=== PATIENT | female | born 1965 | race Two or more races ===

== ENCOUNTER 2021-09-10 15:30 | Emergency (ER) | payer SELFPAY ==
[~2021-09-10] VITALS: Ht 160 cm; Wt 81.6 kg
[2021-09-10 16:27] LABS: Basophils # (auto) 0.1 10 ^3/uL (0-0.2); Basophils % (auto) 0.7 % (0.0-2.0); Eosinophils # (auto) 0 10 ^3/uL (0-0.8); Eosinophils % (auto) 0.1 % (0.0-7.0); Hematocrit 39.1 % (36.0-46.0); Hemoglobin 13.6 g/dL (12.2-16.2); Lymphocytes # (auto) 0.3 10 ^3/uL (0.4-5.4); Lymphocytes % (auto) 3.2 % (10.0-50.0); Mean Corpuscular Hemoglobin 29.7 pg (28.0-32.0); Mean Corpuscular Hgb Conc. 34.7 g/dL (32.0-36.0); Mean Corpuscular Volume 85.5 fL (80.0-100.0); Monocytes # (auto) 0 10 ^3/uL (0-1.3); Monocytes % (auto) 0.5 % (0.0-12.0); Neutrophils % (auto) 95.5 % (37.0-80.0); Red Blood Cells 4.57 10^6/uL (4.0-5.20); Red Cell Distribution Width 13.2 % (11.8-14.3); White Blood Cell 10.4 10^3/uL (4.4-10.8)
[2021-09-10 16:46] LABS: Albumin 3.5 g/dL (3.4-5.0); BUN/Creatinine Ratio 18.7; Calcium 9.4 mg/dL (8.5-10.1)
[2021-09-10 16:49] LABS: Bilirubin, Total 0.6 mg/dL (0.2-1.0); Total Protein 7.8 g/dL (6.4-8.2)
[2021-09-10 17:00] LABS: Potassium 2.5 mmol/L (3.5-5.1)
[2021-09-10] MEDS ORDERED: OXYCODONE W/ ACETAMINOPHEN 5/325MG TABLET PO ONE (17:15)
[2021-09-10] MEDS ORDERED: cefTRIAXone W LIDOCAINE 1 GM IM IM ONE (22:45)
[2021-09-10] MEDS ORDERED: TAMSULOSIN HYDROCHLORIDE 0.4 MG CAP PO ONE (22:45)
[2021-09-10] MEDS ORDERED: POTASSIUM CHL 20 Meq TABLET PO ONE (22:45)
[2021-09-10] MEDS ORDERED: cefTRIAXone SOD 1,000 MG VL ONE (23:13)
[2021-09-11] MEDS ORDERED: TAM04C PO ×2 (00:25→01:28)
[2021-09-11] MEDS ORDERED: CIPR-173 PO ×2 (00:25→01:28)
[2021-09-11] MEDS ORDERED: PERCOT PO ×2 (00:25→00:57)
[2021-09-11] MEDS ORDERED: ALBUTEROL SULF 2.5 MG/0.5ML(0.5%) NEB SOLN NEB ONE (00:30)
[2021-09-11] MEDS ORDERED: IPRATROPIUM BROM 0.5 MG/2.5ML INH SOL NEB ONE (00:30)
[2021-09-11] MEDS ORDERED: ONDA-144 PO (00:57)
[2021-09-11] MEDS ORDERED: PRED20TA2 PO (00:57)
[2021-09-11 01:15] VITALS: BP 104/59
== END 2021-09-11 01:38 | disposition home or self-care (01) ==
LOC: ER 15:41
DX: N20.9 Urinary calculus, unspecified (principal); Z86.73 Personal history of transient ischemic attack (TIA), and cerebral infarction without residual deficits
CPT/HCPCS: 36415; 71045; 74176; 80053; 83690; 85025; 94640; 96372; 99285; J0696; J7644

== ENCOUNTER 2022-04-15 06:15 | Inpatient (IN) | payer OTHER ==
[~2022-04-15] VITALS: Ht 157.5 cm; Wt 98.0 kg
[~2022-04-15 06:15] MED LIST: CIPR-173 PO; ONDA-144 PO; PERCOT PO; PRED20TA2 PO; TAM04C PO
[2022-04-15] MEDS ORDERED: ADENOSINE 6 MG/2 ML INJ IV ONE (06:18)
[2022-04-15] MEDS ORDERED: dilTIAZem 25 MG/5 ML VIAL IV ONE ×3 (06:24→07:30)
[2022-04-15] MEDS ORDERED: dilTIAZem 125mg/125ml BAG KIT 125 ML IV ONE ×2 (06:25→07:00)
[2022-04-15] MEDS ORDERED: SODIUM CHLORIDE 0.9% 1,000 ML IV ONE (06:45)
[2022-04-15] MEDS ORDERED: dilTIAZem 125mg/125ml BAG KIT 100 ML IV SCH (06:45)
[2022-04-15 07:09] LABS: Basophils # (auto) 0 10 ^3/uL (0-0.2); Basophils % (auto) 0.2 % (0.0-2.0); Eosinophils # (auto) 0 10 ^3/uL (0-0.8); Eosinophils % (auto) 0.2 % (0.0-7.0); Hematocrit 42.9 % (36.0-46.0); Hemoglobin 14.7 g/dL (12.2-16.2); Lymphocytes # (auto) 2.5 10 ^3/uL (0.4-5.4); Lymphocytes % (auto) 12.6 % (10.0-50.0); Mean Corpuscular Hemoglobin 30.8 pg (28.0-32.0); Mean Corpuscular Hgb Conc. 34.3 g/dL (32.0-36.0); Mean Corpuscular Volume 89.9 fL (80.0-100.0); Monocytes # (auto) 1.8 10 ^3/uL (0-1.3); Monocytes % (auto) 9.1 % (0.0-12.0); Neutrophils # (auto) 15.4 10 ^3/uL (1.6-8.6); Neutrophils % (auto) 77.9 % (37.0-80.0); Nucleated Red Blood Cells % 0.2 %; Red Blood Cells 4.77 10^6/uL (4.0-5.20); Red Cell Distribution Width 14.3 % (11.8-14.3); White Blood Cell 19.8 10^3/uL (4.4-10.8)
[2022-04-15 07:11] LABS: Anion Gap 9 (5-15); Blood Urea Nitrogen 29 mg/dL (7-18); Calcium 9.3 mg/dL (8.5-10.1); Carbon Dioxide 27 mmol/L (21-32); Chloride 106 mmol/L (98-107); Glucose 129 mg/dL (74-106); Potassium 3.3 mmol/L (3.5-5.1); Sodium 142 mmol/L (136-145)
[2022-04-15 07:13] LABS: Alanine Aminotransferase 154 U/L (13-56); Aspartate Aminotransferase 74 U/L (15-37); GFR African American 62 mL/min; GFR Non-African American 52 mL/min
[2022-04-15 07:15] LABS: Alkaline Phosphatase 253 U/L (45-117); Bilirubin, Total 1.3 mg/dL (0.2-1.0); Total Protein 7.1 g/dL (6.4-8.2)
[2022-04-15] MEDS: NOREPINEPHRINE 8 MG/250ML KIT 250 ML IV SCH ×2 (07:25→07:46)
[2022-04-15] MEDS ORDERED: NOREPINEPHRINE 8 MG/250ML KIT 250 ML IV ONE (07:29)
[2022-04-15] MEDS ORDERED: MIDAZOLAM DRIP 50 mg/50mL 50 ML IV SCH (08:30)
[2022-04-15] MEDS ORDERED: SUCCINYLCHOLINE CHLORIDE 20 MG/ML 10ML VIAL IV ONE (08:30)
[2022-04-15] MEDS ORDERED: LORazepam 2MG/ML-1ML VIAL IV ONE (08:30)
[2022-04-15] MEDS ORDERED: DIGOXIN 0.25 MG TAB PO ONE (08:30)
[2022-04-15] MEDS ORDERED: ETOMIDATE (2MG/ML) 20ML VIAL IV ONE (08:30)
[2022-04-15] MEDS ORDERED: MORPHINE SULFATE 4 MG/ML SYR/VIAL ONE (08:35)
[2022-04-15] MEDS ORDERED: PROMETHAZINE HCL 25 MG/ML 1ML ONE (08:35)
[2022-04-15] MEDS ORDERED: MORPHINE SULFATE 4 MG/ML SYR/VIAL IV ONE (08:45)
[2022-04-15] MEDS ORDERED: PROMETHAZINE HCL 25 MG/ML 1ML IV ONE (08:45)
[2022-04-15] MEDS ORDERED: AMIODARONE 450mg/250ml AE 250 ML IV SCH (10:00)
[2022-04-15 10:06] LABS: INR 1.04 (0.9-1.15); Partial Thromboplastin Time 23.7 sec (24.6-33.4)
[2022-04-15] MEDS ORDERED: cefTRIAXone 1GM/50ML D5W 50 ML IV ONE (10:45)
[2022-04-15] MEDS ORDERED: ENOXAPARIN SOD 100 MG/1 ML SYRINGE SC ONE (10:45)
[2022-04-15] MEDS: POTASSIUM CHL 20MEQ/100ML 100 ML IV SCH ×3 (10:47→23:57)
[2022-04-15] MEDS: DIGOXIN (250MCG/ML) 2 ML AMPULE IV SCH ×2 (12:37→19:21)
[2022-04-15] MEDS ORDERED: NITROGLYCERIN 0.4 MG SL TAB SL PRN (13:00)
[2022-04-15] MEDS ORDERED: DOCUSATE SOD 100 MG CAP PO PRN (13:00)
[2022-04-15] MEDS ORDERED: MORPHINE SULFATE INJ 2 MG/ml SYRG IV PRN (13:00)
[2022-04-15] MEDS: ONDANSETRON HCL 4 MG/2 ML VIAL IV PRN ×2 (13:47→18:26)
[2022-04-15] MEDS: MORPHINE SULFATE 4 MG/ML SYR/VIAL IV PRN ×3 (13:47→22:18)
[2022-04-15] MEDS: dilTIAZem 125mg/125ml BAG KIT 125 ML IV SCH ×2 (15:00→23:45)
[2022-04-15] MEDS ORDERED: AZITHROMYCIN 500MG/ 250ML 250 ML IV ONE (15:15)
[2022-04-15] MEDS: ALPRAZolam 0.5 MG TAB PO PRN (15:22)
[2022-04-15] MEDS ORDERED: IOHEXOL 350 MG/ML 100ML IJ ONE (15:23)
[2022-04-15] MEDS ORDERED: ATOR-47 PO (17:43)
[2022-04-15] MEDS: IPRATROPIUM BROM 0.5 MG/2.5ML INH SOL NEB SCH ×2 (18:00→18:42)
[2022-04-15] MEDS: AMIODARONE 450mg/250ml AE 250 ML IV SCH (18:27)
[2022-04-15] MEDS: DOXYCYCLINE 100MG/250ML 250 ML IV SCH (19:19)
[2022-04-15 19:32] LABS: Calcium 9.3 mg/dL (8.5-10.1); Potassium 3.1 mmol/L (3.5-5.1)
[2022-04-15 19:39] LABS: BUN/Creatinine Ratio 24.8; Magnesium 2.5 mg/dL (1.6-2.6)
[2022-04-15] MEDS ORDERED: ATORVASTATIN 20 MG TAB PO SCH (22:00)
[2022-04-15] MEDS: methylPREDNISolone SOD SUCC 40 MG/ML VL IV SCH (22:30)
[2022-04-15] MEDS ORDERED: TEMAZEPAM 15 MG CAP PO PRN (23:15)
[2022-04-16] MEDS: DIGOXIN (250MCG/ML) 2 ML AMPULE IV SCH (00:43)
[2022-04-16 01:58] VITALS: BP 130/73
[2022-04-16] MEDS: POTASSIUM CHL 20MEQ/100ML 100 ML IV SCH (02:00)
[2022-04-16] MEDS ORDERED: ALBUTEROL MEDNEB 2.5 mg/3ml NEB ONE (05:50)
[2022-04-16] MEDS: AMIODARONE 450mg/250ml AE 250 ML IV SCH (07:00)
[2022-04-16] MEDS: IPRATROPIUM BROM 0.5 MG/2.5ML INH SOL NEB SCH ×5 (07:03→21:54)
[2022-04-16] MEDS: DOXYCYCLINE 100MG/250ML 250 ML IV SCH (07:18)
[2022-04-16] MEDS: NOREPINEPHRINE 8 MG/250ML KIT 250 ML IV SCH ×2 (07:30→23:58)
[2022-04-16 07:43] LABS: Hematocrit 34.2 % (36.0-46.0); Hemoglobin 11.6 g/dL (12.2-16.2); Mean Corpuscular Hemoglobin 30.8 pg (28.0-32.0); Mean Corpuscular Hgb Conc. 33.9 g/dL (32.0-36.0); Mean Corpuscular Volume 90.7 fL (80.0-100.0); Red Blood Cells 3.77 10^6/uL (4.0-5.20); Red Cell Distribution Width 13.7 % (11.8-14.3); White Blood Cell 23.6 10^3/uL (4.4-10.8)
[2022-04-16 07:59] LABS: Albumin 2.8 g/dL (3.4-5.0); Calcium 8.9 mg/dL (8.5-10.1); Potassium 4.1 mmol/L (3.5-5.1)
[2022-04-16 08:03] LABS: BUN/Creatinine Ratio 22.1; Total Protein 6.4 g/dL (6.4-8.2)
[2022-04-16 08:05] LABS: Basophils % (manual) 0 (0.0-2.0); Blast Cells 0; Eosinophils % (manual) 0 (0-7); Metamyelocytes % 0; Myelocytes % 0; Promyelocytes % 0; Reactive Lymphocytes 0
[2022-04-16] MEDS ORDERED: cefTRIAXone 1GM/50ML D5W 50 ML IV SCH (09:00)
[2022-04-16] MEDS ORDERED: AZITHROMYCIN 500MG/ 250ML 250 ML IV SCH (10:00)
[2022-04-16] MEDS ORDERED: PANTOPRAZOLE 40 MG/10 ML VIAL INJ IV SCH (10:00)
[2022-04-16] MEDS ORDERED: DIGOXIN 0.25 MG TAB PO SCH (10:00)
[2022-04-16] MEDS ORDERED: TAMSULOSIN HYDROCHLORIDE 0.4 MG CAP PO SCH (10:00)
[2022-04-16] MEDS ORDERED: ENOXAPARIN SOD 40 MG/0.4 ML SYRINGE SC SCH (10:00)
[2022-04-16] MEDS: methylPREDNISolone SOD SUCC 40 MG/ML VL IV SCH (10:36)
[2022-04-16] MEDS ORDERED: PANTOPRAZOLE 40 MG/10 ML VIAL INJ IV ONE (13:00)
[2022-04-16] MEDS ORDERED: CEFEPIME 2 GM in SODIUM CHL 0.9% 50 ML IV ONE (13:00)
[2022-04-16] MEDS ORDERED: MEROPENEM 1GM IVPB 100 ML IV ONE (13:45)
[2022-04-16 14:52] LABS: Band Neutrophils % (manual) 7; Lymphocytes % (manual) 9 (10.0-50.0); Monocytes % (manual) 2 (0-12)
[2022-04-16] MEDS ORDERED: AMIODARONE HCL 200 MG TAB ONE (15:33)
[2022-04-16] MEDS: AMIODARONE HCL 200 MG TAB PO SCH (15:47)
[2022-04-16] MEDS: SODIUM CHLORIDE 0.9% 1,000 ML IV SCH ×2 (16:05→22:57)
[2022-04-16 19:16] LABS: Urine Bacteria NONE SEEN /hpf (None Seen); Urine Blood Negative /uL (Negative); Urine Mucus FEW (None Seen); Urine Specific Gravity 1.047 (1.001-1.035); Urine WBC 2 /hpf (0 - 5)
[2022-04-16 19:19] LABS: Protein, Urine 68.7 mg/dL (0.0-11.9)
[2022-04-16] MEDS: ENOXAPARIN SOD 100 MG/1 ML SYRINGE SC SCH (21:58)
[2022-04-16] MEDS: LINEZOLID 600MG/300ML 300 ML IV SCH (21:58)
[2022-04-16] MEDS ORDERED: CEFEPIME 2 GM in SODIUM CHL 0.9% 50 ML IV SCH (22:00)
[2022-04-17] VITALS (27 sets, daily range): BP systolic 67–118; BP diastolic 34–75
[2022-04-17] MEDS: MEROPENEM 1GM IVPB 100 ML IV SCH ×3 (00:43→16:40)
[2022-04-17] MEDS: ONDANSETRON HCL 4 MG/2 ML VIAL IV PRN (04:14)
[2022-04-17] MEDS: HYDROcodone-ACET 5/325MG TAB PO PRN ×2 (04:15→21:59)
[2022-04-17] MEDS: IPRATROPIUM BROM 0.5 MG/2.5ML INH SOL NEB SCH ×5 (05:52→22:41)
[2022-04-17 08:11] LABS: Hematocrit 32.4 % (36.0-46.0); Hemoglobin 10.7 g/dL (12.2-16.2); Mean Corpuscular Hemoglobin 30.1 pg (28.0-32.0); Mean Corpuscular Hgb Conc. 33.1 g/dL (32.0-36.0); Mean Corpuscular Volume 90.9 fL (80.0-100.0); Red Blood Cells 3.57 10^6/uL (4.0-5.20); Red Cell Distribution Width 13.9 % (11.8-14.3); White Blood Cell 24.6 10^3/uL (4.4-10.8)
[2022-04-17 08:17] LABS: Albumin 2.4 g/dL (3.4-5.0); BUN/Creatinine Ratio 30.7; Calcium 9.6 mg/dL (8.5-10.1); Potassium 3.5 mmol/L (3.5-5.1)
[2022-04-17 08:20] LABS: Bilirubin, Total 0.4 mg/dL (0.2-1.0); Total Protein 6.7 g/dL (6.4-8.2)
[2022-04-17 08:27] LABS: Basophils % (manual) 0 (0.0-2.0); Blast Cells 0; Eosinophils % (manual) 0 (0-7); Metamyelocytes % 0; Myelocytes % 0; Promyelocytes % 0; Reactive Lymphocytes 0
[2022-04-17] MEDS ORDERED: POTASSIUM CHL 20 Meq TABLET PO ONE (09:15)
[2022-04-17] MEDS ORDERED: FUROSEMIDE 20 MG/2 ML VIAL IV ONE (09:30)
[2022-04-17] MEDS ORDERED: LEVALBUTEROL HCL 1.25 MG/3 ML NEB ONE (09:33)
[2022-04-17] MEDS ORDERED: POTA10TA51 PO (09:45)
[2022-04-17] MEDS ORDERED: HYDR25TA87 PO (09:45)
[2022-04-17] MEDS ORDERED: AMLO-489 PO (09:45)
[2022-04-17] MEDS: LEVALBUTEROL HCL 1.25 MG/3 ML NEB NEB SCH ×3 (09:56→22:41)
[2022-04-17] MEDS: LINEZOLID 600MG/300ML 300 ML IV SCH ×2 (09:59→23:00)
[2022-04-17] MEDS: AMIODARONE HCL 200 MG TAB PO SCH ×2 (10:00→23:00)
[2022-04-17] MEDS: PANTOPRAZOLE 40 MG/10 ML VIAL INJ IV SCH (10:00)
[2022-04-17] MEDS: ENOXAPARIN SOD 100 MG/1 ML SYRINGE SC SCH ×2 (10:01→23:00)
[2022-04-17] MEDS: MORPHINE SULFATE 4 MG/ML SYR/VIAL IV PRN ×3 (12:11→21:28)
[2022-04-17 14:24] LABS: Band Neutrophils % (manual) 3; Lymphocytes % (manual) 5 (10.0-50.0); Monocytes % (manual) 1 (0-12)
[2022-04-17] MEDS: dilTIAZem 125mg/125ml BAG KIT 125 ML IV SCH (15:15)
[2022-04-17] MEDS ORDERED: KETOROLAC TROMETH 30 MG/ML 1ML VIAL IV ONE (21:45)
[2022-04-17] MEDS: ALPRAZolam 0.5 MG TAB PO PRN (21:59)
[2022-04-18] VITALS (55 sets, daily range): BP systolic 77–123; BP diastolic 36–66
[2022-04-18] MEDS: MEROPENEM 1GM IVPB 100 ML IV SCH ×3 (02:00→17:20)
[2022-04-18 05:10] LABS: Basophils # (auto) 0 10 ^3/uL (0-0.2); Eosinophils # (auto) 0 10 ^3/uL (0-0.8); Hematocrit 29.9 % (36.0-46.0); Lymphocytes % (auto) 8.5 % (10.0-50.0); Mean Corpuscular Hemoglobin 30.6 pg (28.0-32.0); Mean Corpuscular Hgb Conc. 33.5 g/dL (32.0-36.0); Mean Corpuscular Volume 91.2 fL (80.0-100.0); Monocytes # (auto) 1.3 10 ^3/uL (0-1.3); Monocytes % (auto) 11.5 % (0.0-12.0); Neutrophils # (auto) 9.2 10 ^3/uL (1.6-8.6); Red Blood Cells 3.28 10^6/uL (4.0-5.20); Red Cell Distribution Width 14.3 % (11.8-14.3); White Blood Cell 11.5 10^3/uL (4.4-10.8)
[2022-04-18 05:28] LABS: Albumin 2.2 g/dL (3.4-5.0); BUN/Creatinine Ratio 32.6; Calcium 9.1 mg/dL (8.5-10.1); Magnesium 2.6 mg/dL (1.6-2.6); Potassium 3.7 mmol/L (3.5-5.1)
[2022-04-18 05:31] LABS: Bilirubin, Total 0.4 mg/dL (0.2-1.0); Total Protein 6.2 g/dL (6.4-8.2)
[2022-04-18] MEDS: ALPRAZolam 0.5 MG TAB PO PRN ×2 (06:10→14:00)
[2022-04-18] MEDS: HYDROcodone-ACET 5/325MG TAB PO PRN ×3 (06:15→20:00)
[2022-04-18] MEDS: LEVALBUTEROL HCL 1.25 MG/3 ML NEB NEB SCH ×3 (06:21→18:41)
[2022-04-18] MEDS: IPRATROPIUM BROM 0.5 MG/2.5ML INH SOL NEB SCH ×5 (06:21→22:00)
[2022-04-18] MEDS: NOREPINEPHRINE 8 MG/250ML KIT 250 ML IV SCH (08:09)
[2022-04-18] MEDS ORDERED: BACLOFEN 10 MG TAB PO ONE (10:15)
[2022-04-18] MEDS ORDERED: ALBUMIN 25% 100 ML IV ONE (10:30)
[2022-04-18] MEDS: PANTOPRAZOLE 40 MG/10 ML VIAL INJ IV SCH (10:39)
[2022-04-18] MEDS: AMIODARONE HCL 200 MG TAB PO SCH ×2 (10:39→21:54)
[2022-04-18] MEDS: ENOXAPARIN SOD 100 MG/1 ML SYRINGE SC SCH ×2 (10:40→21:55)
[2022-04-18] MEDS: LINEZOLID 600MG/300ML 300 ML IV SCH ×2 (10:41→21:54)
[2022-04-18] MEDS ORDERED: FUROSEMIDE 20 MG/2 ML VIAL IV ONE (11:30)
[2022-04-18] MEDS ORDERED: FUROSEMIDE 40 MG/4 ML VIAL IV ONE (12:00)
[2022-04-18] MEDS ORDERED: AMIODARONE 450mg/250ml AE 250 ML IV SCH ×2 (14:00→20:00)
[2022-04-18] MEDS ORDERED: AMIODARONE HCL 150 MG in D5W 5% 100 ML IV ONE (14:00)
[2022-04-18] MEDS ORDERED: LORazepam 2MG/ML-1ML VIAL IV ONE (16:30)
[2022-04-18] MEDS: LORazepam 2MG/ML-1ML VIAL IV PRN (18:19)
[2022-04-19] VITALS (37 sets, daily range): BP systolic 90–122; BP diastolic 37–66
[2022-04-19] MEDS: MEROPENEM 1GM IVPB 100 ML IV SCH ×3 (01:05→14:53)
[2022-04-19] MEDS: LORazepam 2MG/ML-1ML VIAL IV PRN (02:00)
[2022-04-19 02:01] LABS: Hepatitis C Antibody Negative (Negative)
[2022-04-19] MEDS: LEVALBUTEROL HCL 1.25 MG/3 ML NEB NEB SCH ×6 (02:39→21:57)
[2022-04-19] MEDS: IPRATROPIUM BROM 0.5 MG/2.5ML INH SOL NEB SCH ×6 (02:39→21:57)
[2022-04-19 05:04] LABS: Basophils # (auto) 0 10 ^3/uL (0-0.2); Basophils % (auto) 0.1 % (0.0-2.0); Eosinophils # (auto) 0.2 10 ^3/uL (0-0.8); Eosinophils % (auto) 2.4 % (0.0-7.0); Hematocrit 31.1 % (36.0-46.0); Hemoglobin 10.5 g/dL (12.2-16.2); Lymphocytes # (auto) 1.1 10 ^3/uL (0.4-5.4); Lymphocytes % (auto) 10.5 % (10.0-50.0); Mean Corpuscular Hemoglobin 30.5 pg (28.0-32.0); Mean Corpuscular Hgb Conc. 33.8 g/dL (32.0-36.0); Mean Corpuscular Volume 90.5 fL (80.0-100.0); Monocytes # (auto) 1.2 10 ^3/uL (0-1.3); Red Blood Cells 3.44 10^6/uL (4.0-5.20); White Blood Cell 10.5 10^3/uL (4.4-10.8)
[2022-04-19 05:22] LABS: Calcium 9.1 mg/dL (8.5-10.1); Magnesium 2.3 mg/dL (1.6-2.6); Potassium 3.3 mmol/L (3.5-5.1)
[2022-04-19 05:24] LABS: BUN/Creatinine Ratio 31.7
[2022-04-19] MEDS: NOREPINEPHRINE 8 MG/250ML KIT 250 ML IV SCH (07:30)
[2022-04-19] MEDS: ALPRAZolam 0.5 MG TAB PO PRN ×2 (08:02→19:11)
[2022-04-19] MEDS ORDERED: POTASSIUM CHL 20 Meq TABLET PO ONE (08:45)
[2022-04-19] MEDS: LINEZOLID 600MG/300ML 300 ML IV SCH ×2 (10:00→22:22)
[2022-04-19] MEDS ORDERED: FUROSEMIDE 40 MG/4 ML VIAL IV SCH (10:00)
[2022-04-19] MEDS: PANTOPRAZOLE 40 MG/10 ML VIAL INJ IV SCH (10:15)
[2022-04-19] MEDS: AMIODARONE HCL 200 MG TAB PO SCH ×2 (10:15→20:53)
[2022-04-19] MEDS: ENOXAPARIN SOD 100 MG/1 ML SYRINGE SC SCH ×2 (10:16→20:54)
[2022-04-19] MEDS: guaiFENesin 200 MG/10 ML UD PO PRN ×2 (10:28→19:11)
[2022-04-19] MEDS: HYDROcodone-ACET 5/325MG TAB PO PRN ×3 (10:28→22:30)
[2022-04-19] MEDS: POTASSIUM CHL 20 Meq TABLET PO ONE ×2 (10:33→14:52)
[2022-04-19] MEDS ORDERED: FUROSEMIDE 40 MG/4 ML VIAL ONE (10:39)
[2022-04-19] MEDS ORDERED: FUROSEMIDE 40 MG/4 ML VIAL IV ONE (11:15)
[2022-04-19] MEDS: AMIODARONE 450mg/250ml AE 250 ML IV SCH ×2 (11:27→18:12)
[2022-04-19] MEDS: Ensure HIGH Protein Chocolate 8oz Bottle PO SCH ×2 (12:00→18:11)
[2022-04-19] MEDS: FUROSEMIDE 40 MG/4 ML VIAL IV SCH (18:12)
[2022-04-19] MEDS: ACETAMINOPHEN 325 MG TAB PO PRN (20:52)
[2022-04-19] MEDS: POTASSIUM CHL 20 Meq TABLET PO SCH (22:22)
[2022-04-20] VITALS (24 sets, daily range): BP systolic 88–142; BP diastolic 50–85
[2022-04-20] MEDS: MEROPENEM 1GM IVPB 100 ML IV SCH ×3 (00:21→17:40)
[2022-04-20] MEDS: ALPRAZolam 0.5 MG TAB PO PRN (04:24)
[2022-04-20] MEDS: NOREPINEPHRINE 8 MG/250ML KIT 250 ML IV SCH (04:39)
[2022-04-20] MEDS ORDERED: IPRATROPIUM BROM 0.5 MG/2.5ML INH SOL ONE (05:36)
[2022-04-20 05:37] LABS: Anion Gap 10 (5-15); BUN/Creatinine Ratio 22.2; Blood Urea Nitrogen 16 mg/dL (7-18); Calcium 9.3 mg/dL (8.5-10.1); Carbon Dioxide 25 mmol/L (21-32); Chloride 102 mmol/L (98-107); GFR African American 108 mL/min; GFR Non-African American 89 mL/min; Glucose 85 mg/dL (74-106); Magnesium 2.4 mg/dL (1.6-2.6); Potassium 3.3 mmol/L (3.5-5.1); Sodium 137 mmol/L (136-145)
[2022-04-20] MEDS: FUROSEMIDE 40 MG/4 ML VIAL IV SCH ×2 (05:52→17:41)
[2022-04-20] MEDS: HYDROcodone-ACET 5/325MG TAB PO PRN ×3 (05:52→17:52)
[2022-04-20] MEDS: IPRATROPIUM BROM 0.5 MG/2.5ML INH SOL NEB SCH ×4 (06:10→23:01)
[2022-04-20] MEDS: LEVALBUTEROL HCL 1.25 MG/3 ML NEB NEB SCH ×4 (06:10→23:01)
[2022-04-20] MEDS ORDERED: POTASSIUM CHL 20 Meq TABLET PO ONE ×2 (07:15→10:45)
[2022-04-20] MEDS: Ensure HIGH Protein Chocolate 8oz Bottle PO SCH ×3 (08:13→17:42)
[2022-04-20] MEDS ORDERED: AMIODARONE 450mg/250ml AE 250 ML IV ONE (08:15)
[2022-04-20] MEDS: AMIODARONE HCL 200 MG TAB PO SCH ×2 (10:56→22:07)
[2022-04-20] MEDS: POTASSIUM CHL 20 Meq TABLET PO SCH ×2 (10:57→22:08)
[2022-04-20] MEDS: LINEZOLID 600MG/300ML 300 ML IV SCH ×2 (10:57→22:07)
[2022-04-20] MEDS: PANTOPRAZOLE 40 MG/10 ML VIAL INJ IV SCH (10:57)
[2022-04-20] MEDS: LORazepam 2MG/ML-1ML VIAL IV PRN (11:11)
[2022-04-20] MEDS ORDERED: AMIODARONE 450mg/250ml AE 250 ML IV SCH (13:45)
[2022-04-20] MEDS: ENOXAPARIN SOD 100 MG/1 ML SYRINGE SC SCH (22:00)
[2022-04-20] MEDS: MORPHINE SULFATE 4 MG/ML SYR/VIAL IV PRN (22:07)
[2022-04-21] VITALS (36 sets, daily range): BP systolic 92–160; BP diastolic 49–91
[2022-04-21] MEDS: LORazepam 2MG/ML-1ML VIAL IV PRN ×2 (01:51→13:40)
[2022-04-21] MEDS: MORPHINE SULFATE 4 MG/ML SYR/VIAL IV PRN ×3 (04:55→20:59)
[2022-04-21 06:17] LABS: Potassium 4.3 mmol/L (3.5-5.1)
[2022-04-21 06:18] LABS: Basophils # (auto) 0 10 ^3/uL (0-0.2); Basophils % (auto) 0.2 % (0.0-2.0); Eosinophils # (auto) 0.3 10 ^3/uL (0-0.8); Eosinophils % (auto) 2.4 % (0.0-7.0); Hematocrit 33.1 % (36.0-46.0); Hemoglobin 11.3 g/dL (12.2-16.2); Lymphocytes # (auto) 0.9 10 ^3/uL (0.4-5.4); Lymphocytes % (auto) 6.8 % (10.0-50.0); Mean Corpuscular Hemoglobin 30.6 pg (28.0-32.0); Mean Corpuscular Volume 89.9 fL (80.0-100.0); Monocytes # (auto) 1.1 10 ^3/uL (0-1.3); Monocytes % (auto) 8.6 % (0.0-12.0); Neutrophils # (auto) 10.9 10 ^3/uL (1.6-8.6); Red Blood Cells 3.68 10^6/uL (4.0-5.20); Red Cell Distribution Width 13.7 % (11.8-14.3); White Blood Cell 13.3 10^3/uL (4.4-10.8)
[2022-04-21] MEDS: LEVALBUTEROL HCL 1.25 MG/3 ML NEB NEB SCH ×3 (06:19→18:50)
[2022-04-21] MEDS: IPRATROPIUM BROM 0.5 MG/2.5ML INH SOL NEB SCH ×3 (06:19→18:50)
[2022-04-21 06:26] LABS: Albumin 2.5 g/dL (3.4-5.0); BUN/Creatinine Ratio 22.2; Bilirubin, Total 0.7 mg/dL (0.2-1.0); Calcium 9.1 mg/dL (8.5-10.1); Total Protein 6.6 g/dL (6.4-8.2)
[2022-04-21] MEDS: FUROSEMIDE 40 MG/4 ML VIAL IV SCH ×2 (06:30→18:29)
[2022-04-21] MEDS: NOREPINEPHRINE 8 MG/250ML KIT 250 ML IV SCH (07:30)
[2022-04-21] MEDS: Ensure HIGH Protein Chocolate 8oz Bottle PO SCH ×3 (08:07→18:06)
[2022-04-21] MEDS: MEROPENEM 1GM IVPB 100 ML IV SCH ×3 (08:13→16:33)
[2022-04-21] MEDS: PANTOPRAZOLE 40 MG/10 ML VIAL INJ IV SCH (09:50)
[2022-04-21] MEDS: AMIODARONE HCL 200 MG TAB PO SCH ×2 (09:51→21:46)
[2022-04-21] MEDS: ENOXAPARIN SOD 100 MG/1 ML SYRINGE SC SCH (09:51)
[2022-04-21] MEDS: POTASSIUM CHL 20 Meq TABLET PO SCH ×2 (09:51→21:46)
[2022-04-21] MEDS: LINEZOLID 600MG/300ML 300 ML IV SCH ×2 (09:55→21:45)
[2022-04-21] MEDS: HYALURONIDASE 150 UNIT/1 ML SUBCUT ONE ×2 (13:30→14:16)
[2022-04-21] MEDS: HYDROcodone-ACET 5/325MG TAB PO PRN (13:40)
[2022-04-21] MEDS ORDERED: HYALURONIDASE 150 UNIT/1 ML SUBCUT ONE (14:00)
[2022-04-21] MEDS: ENOXAPARIN SOD 80 MG/0.8ML SYRINGE SC SCH (21:46)
[2022-04-22] VITALS (47 sets, daily range): BP systolic 94–135; BP diastolic 53–78
[2022-04-22] MEDS ORDERED: METOPROLOL TARTRATE 1MG/1ML-5ML VIAL IV ONE ×2 (00:18→15:00)
[2022-04-22] MEDS: METOPROLOL TARTRATE 1MG/1ML-5ML VIAL IV SCH ×3 (00:27→09:37)
[2022-04-22] MEDS: LEVALBUTEROL HCL 1.25 MG/3 ML NEB NEB SCH ×4 (01:52→18:58)
[2022-04-22] MEDS: IPRATROPIUM BROM 0.5 MG/2.5ML INH SOL NEB SCH ×4 (01:52→18:58)
[2022-04-22 05:02] LABS: Hemoglobin 10.7 g/dL (12.2-16.2); Mean Corpuscular Hemoglobin 29.3 pg (28.0-32.0); Mean Corpuscular Hgb Conc. 32.4 g/dL (32.0-36.0); Mean Corpuscular Volume 90.4 fL (80.0-100.0); Red Blood Cells 3.65 10^6/uL (4.0-5.20); Red Cell Distribution Width 13.3 % (11.8-14.3); White Blood Cell 14.6 10^3/uL (4.4-10.8)
[2022-04-22 05:21] LABS: BUN/Creatinine Ratio 20.3; Calcium 8.7 mg/dL (8.5-10.1); Potassium 4.6 mmol/L (3.5-5.1)
[2022-04-22 05:44] LABS: Basophils % (manual) 0 (0.0-2.0); Blast Cells 0; Eosinophils % (manual) 0 (0-7); Promyelocytes % 0; Reactive Lymphocytes 0
[2022-04-22] MEDS: FUROSEMIDE 40 MG/4 ML VIAL IV SCH ×2 (06:00→18:56)
[2022-04-22] MEDS: Ensure HIGH Protein Chocolate 8oz Bottle PO SCH ×3 (08:00→18:00)
[2022-04-22 08:34] LABS: Band Neutrophils % (manual) 3; Lymphocytes % (manual) 10 (10.0-50.0); Metamyelocytes % 2; Monocytes % (manual) 7 (0-12); Myelocytes % 3
[2022-04-22] MEDS: MEROPENEM 1GM IVPB 100 ML IV SCH ×3 (09:24→17:01)
[2022-04-22] MEDS: PANTOPRAZOLE 40 MG/10 ML VIAL INJ IV SCH (09:41)
[2022-04-22] MEDS: ENOXAPARIN SOD 80 MG/0.8ML SYRINGE SC SCH ×2 (09:41→21:23)
[2022-04-22] MEDS: POTASSIUM CHL 20 Meq TABLET PO SCH ×2 (10:14→21:23)
[2022-04-22] MEDS: AMIODARONE HCL 200 MG TAB PO SCH ×2 (10:14→21:22)
[2022-04-22] MEDS: LORazepam 2MG/ML-1ML VIAL IV PRN ×2 (11:08)
[2022-04-22] MEDS: LINEZOLID 600MG/300ML 300 ML IV SCH ×2 (12:18→21:23)
[2022-04-22] MEDS ORDERED: FUROSEMIDE 40 MG/4 ML VIAL IV ONE (12:45)
[2022-04-22] MEDS: METOPROLOL TARTRATE 25 MG TAB PO SCH ×2 (15:01→21:23)
[2022-04-22] MEDS: ALPRAZolam 0.5 MG TAB PO PRN (21:21)
[2022-04-22] MEDS ORDERED: METOPROLOL TARTRATE 25 MG TAB PO SCH (22:00)
[2022-04-23] VITALS (34 sets, daily range): BP systolic 90–149; BP diastolic 37–88
[2022-04-23] MEDS: LEVALBUTEROL HCL 1.25 MG/3 ML NEB NEB SCH ×4 (00:34→18:15)
[2022-04-23] MEDS: IPRATROPIUM BROM 0.5 MG/2.5ML INH SOL NEB SCH ×4 (00:35→18:15)
[2022-04-23 05:48] LABS: Hematocrit 30.1 % (36.0-46.0); Hemoglobin 10.3 g/dL (12.2-16.2); Mean Corpuscular Hemoglobin 30.8 pg (28.0-32.0); Mean Corpuscular Hgb Conc. 34.1 g/dL (32.0-36.0); Mean Corpuscular Volume 90.4 fL (80.0-100.0); Red Blood Cells 3.33 10^6/uL (4.0-5.20); Red Cell Distribution Width 13.3 % (11.8-14.3); White Blood Cell 9.7 10^3/uL (4.4-10.8)
[2022-04-23 05:56] LABS: Basophils % (manual) 0 (0.0-2.0); Blast Cells 0; Metamyelocytes % 0; Promyelocytes % 0; Reactive Lymphocytes 0
[2022-04-23] MEDS: FUROSEMIDE 40 MG/4 ML VIAL IV SCH (06:00)
[2022-04-23 06:16] LABS: Potassium 3.9 mmol/L (3.5-5.1)
[2022-04-23 06:20] LABS: Calcium 8.7 mg/dL (8.5-10.1)
[2022-04-23 08:03] LABS: Band Neutrophils % (manual) 1; Eosinophils % (manual) 6 (0-7); Lymphocytes % (manual) 11 (10.0-50.0); Monocytes % (manual) 7 (0-12); Myelocytes % 1
[2022-04-23] MEDS: MEROPENEM 1GM IVPB 100 ML IV SCH ×3 (09:17→15:46)
[2022-04-23] MEDS: Ensure HIGH Protein Chocolate 8oz Bottle PO SCH ×3 (09:18→19:26)
[2022-04-23] MEDS: PANTOPRAZOLE 40 MG/10 ML VIAL INJ IV SCH (10:10)
[2022-04-23] MEDS: ENOXAPARIN SOD 80 MG/0.8ML SYRINGE SC SCH ×2 (10:11→21:26)
[2022-04-23] MEDS: POTASSIUM CHL 20 Meq TABLET PO SCH ×2 (10:12→21:25)
[2022-04-23] MEDS: METOPROLOL TARTRATE 25 MG TAB PO SCH (10:12)
[2022-04-23] MEDS: AMIODARONE HCL 200 MG TAB PO SCH ×2 (10:12→21:25)
[2022-04-23] MEDS: LINEZOLID 600MG/300ML 300 ML IV SCH ×2 (10:13→21:24)
[2022-04-23] MEDS: FUROSEMIDE 20 MG/2 ML VIAL IV SCH (17:55)
[2022-04-23] MEDS ORDERED: DIGOXIN (250MCG/ML) 2 ML AMPULE ONE (19:19)
[2022-04-23] MEDS ORDERED: DIGOXIN (250MCG/ML) 2 ML AMPULE IV ONE (19:30)
[2022-04-24] VITALS (35 sets, daily range): BP systolic 94–118; BP diastolic 43–82
[2022-04-24] MEDS: LEVALBUTEROL HCL 1.25 MG/3 ML NEB NEB SCH ×4 (00:27→19:40)
[2022-04-24] MEDS: IPRATROPIUM BROM 0.5 MG/2.5ML INH SOL NEB SCH ×4 (00:27→19:40)
[2022-04-24] MEDS: METOPROLOL TARTRATE 25 MG TAB PO SCH ×3 (01:00→22:00)
[2022-04-24] MEDS: MEROPENEM 1GM IVPB 100 ML IV SCH ×3 (01:14→15:30)
[2022-04-24] MEDS: guaiFENesin 200 MG/10 ML UD PO PRN ×2 (01:15→22:22)
[2022-04-24] MEDS: ALPRAZolam 0.5 MG TAB PO PRN ×2 (06:00→22:22)
[2022-04-24] MEDS: FUROSEMIDE 20 MG/2 ML VIAL IV SCH ×2 (06:01→17:20)
[2022-04-24] MEDS: Ensure HIGH Protein Chocolate 8oz Bottle PO SCH ×3 (08:21→16:03)
[2022-04-24] MEDS: DIGOXIN 0.25 MG TAB PO SCH (08:39)
[2022-04-24] MEDS: PANTOPRAZOLE 40 MG/10 ML VIAL INJ IV SCH (08:56)
[2022-04-24] MEDS: POTASSIUM CHL 20 Meq TABLET PO SCH ×2 (08:56→22:21)
[2022-04-24] MEDS: LINEZOLID 600MG/300ML 300 ML IV SCH ×2 (08:56→22:21)
[2022-04-24] MEDS: AMIODARONE HCL 200 MG TAB PO SCH ×2 (08:56→22:21)
[2022-04-24] MEDS: ENOXAPARIN SOD 80 MG/0.8ML SYRINGE SC SCH ×2 (08:56→22:21)
[2022-04-24 09:17] LABS: Urine Bacteria FEW /hpf (None Seen); Urine Blood 3+ /uL (Negative); Urine Hyaline Cast FEW /lpf (0 - 2); Urine Mucus FEW (None Seen); Urine Specific Gravity 1.013 (1.001-1.035); Urine WBC 2 /hpf (0 - 5)
[2022-04-24 10:47] LABS: Hematocrit 30.4 % (36.0-46.0); Hemoglobin 10.5 g/dL (12.2-16.2); Mean Corpuscular Hemoglobin 31.2 pg (28.0-32.0); Mean Corpuscular Hgb Conc. 34.6 g/dL (32.0-36.0); Mean Corpuscular Volume 90.1 fL (80.0-100.0); Red Blood Cells 3.37 10^6/uL (4.0-5.20); Red Cell Distribution Width 13.6 % (11.8-14.3); White Blood Cell 9.4 10^3/uL (4.4-10.8)
[2022-04-24] MEDS: ACETAMINOPHEN 325 MG TAB PO PRN (10:55)
[2022-04-24 10:57] LABS: Calcium 8.8 mg/dL (8.5-10.1); Potassium 4.4 mmol/L (3.5-5.1)
[2022-04-24 11:00] LABS: BUN/Creatinine Ratio 20.9
[2022-04-24 11:06] LABS: Band Neutrophils % (manual) 0; Basophils % (manual) 0 (0.0-2.0); Blast Cells 0; Metamyelocytes % 0; Myelocytes % 0; Promyelocytes % 0; Reactive Lymphocytes 0
[2022-04-24 13:29] LABS: Eosinophils % (manual) 4 (0-7); Lymphocytes % (manual) 13 (10.0-50.0); Monocytes % (manual) 9 (0-12)
[2022-04-25] VITALS (36 sets, daily range): BP systolic 95–128; BP diastolic 42–70
[2022-04-25] MEDS: IPRATROPIUM BROM 0.5 MG/2.5ML INH SOL NEB SCH ×4 (01:02→18:44)
[2022-04-25] MEDS: LEVALBUTEROL HCL 1.25 MG/3 ML NEB NEB SCH ×4 (01:02→18:44)
[2022-04-25] MEDS: MORPHINE SULFATE 4 MG/ML SYR/VIAL IV PRN (02:58)
[2022-04-25 05:41] LABS: Hematocrit 30.2 % (36.0-46.0); Hemoglobin 10.2 g/dL (12.2-16.2); Mean Corpuscular Hemoglobin 30.7 pg (28.0-32.0); Mean Corpuscular Hgb Conc. 33.8 g/dL (32.0-36.0); Mean Corpuscular Volume 90.9 fL (80.0-100.0); Red Blood Cells 3.33 10^6/uL (4.0-5.20); Red Cell Distribution Width 13.8 % (11.8-14.3); White Blood Cell 7.3 10^3/uL (4.4-10.8)
[2022-04-25 05:55] LABS: Band Neutrophils % (manual) 0; Basophils % (manual) 0 (0.0-2.0); Blast Cells 0; Metamyelocytes % 0; Myelocytes % 0; Promyelocytes % 0; Reactive Lymphocytes 0
[2022-04-25] MEDS: FUROSEMIDE 20 MG/2 ML VIAL IV SCH ×2 (06:28→17:07)
[2022-04-25 07:59] LABS: Eosinophils % (manual) 4 (0-7); Lymphocytes % (manual) 19 (10.0-50.0); Monocytes % (manual) 3 (0-12)
[2022-04-25] MEDS: Ensure HIGH Protein Chocolate 8oz Bottle PO SCH ×3 (08:00→19:00)
[2022-04-25] MEDS: MEROPENEM 1GM IVPB 100 ML IV SCH ×3 (08:28→15:18)
[2022-04-25] MEDS: DIGOXIN 0.25 MG TAB PO SCH (10:00)
[2022-04-25] MEDS: LINEZOLID 600MG/300ML 300 ML IV SCH ×2 (10:29→21:50)
[2022-04-25] MEDS: PANTOPRAZOLE 40 MG/10 ML VIAL INJ IV SCH (10:30)
[2022-04-25] MEDS: ENOXAPARIN SOD 80 MG/0.8ML SYRINGE SC SCH ×2 (10:31→21:50)
[2022-04-25] MEDS: POTASSIUM CHL 20 Meq TABLET PO SCH ×2 (10:32→21:52)
[2022-04-25] MEDS: AMIODARONE HCL 200 MG TAB PO SCH ×2 (10:32→21:52)
[2022-04-25] MEDS ORDERED: FUROSEMIDE 20 MG/2 ML VIAL IV ONE (11:30)
[2022-04-25] MEDS ORDERED: SPIRONOLACTONE 25 MG TAB PO ONE (11:30)
[2022-04-25] MEDS ORDERED: FLUCONAZOLE 100 MG TAB PO ONE (11:30)
[2022-04-25] MEDS: METOPROLOL TARTRATE 25 MG TAB PO SCH ×2 (12:03→21:53)
[2022-04-26] VITALS (24 sets, daily range): BP systolic 98–142; BP diastolic 48–74
[2022-04-26] MEDS: IPRATROPIUM BROM 0.5 MG/2.5ML INH SOL NEB SCH ×4 (00:14→18:38)
[2022-04-26] MEDS: LEVALBUTEROL HCL 1.25 MG/3 ML NEB NEB SCH ×4 (00:14→18:37)
[2022-04-26 05:23] LABS: Basophils # (auto) 0 10 ^3/uL (0-0.2); Basophils % (auto) 0.6 % (0.0-2.0); Eosinophils # (auto) 0.3 10 ^3/uL (0-0.8); Eosinophils % (auto) 3.5 % (0.0-7.0); Hematocrit 29.7 % (36.0-46.0); Hemoglobin 10.1 g/dL (12.2-16.2); Lymphocytes # (auto) 1.1 10 ^3/uL (0.4-5.4); Lymphocytes % (auto) 15.3 % (10.0-50.0); Mean Corpuscular Hemoglobin 30.9 pg (28.0-32.0); Mean Corpuscular Hgb Conc. 34.1 g/dL (32.0-36.0); Mean Corpuscular Volume 90.6 fL (80.0-100.0); Monocytes # (auto) 0.7 10 ^3/uL (0-1.3); Monocytes % (auto) 9.3 % (0.0-12.0); Neutrophils # (auto) 5.2 10 ^3/uL (1.6-8.6); Neutrophils % (auto) 71.3 % (37.0-80.0); Red Blood Cells 3.28 10^6/uL (4.0-5.20); Red Cell Distribution Width 13.2 % (11.8-14.3); White Blood Cell 7.3 10^3/uL (4.4-10.8)
[2022-04-26] MEDS: FUROSEMIDE 20 MG/2 ML VIAL IV SCH ×2 (06:00→18:03)
[2022-04-26 07:41] LABS: Potassium 4.5 mmol/L (3.5-5.1)
[2022-04-26 07:50] LABS: Albumin 2.3 g/dL (3.4-5.0); BUN/Creatinine Ratio 14.1; Bilirubin, Total 0.3 mg/dL (0.2-1.0); Calcium 8.6 mg/dL (8.5-10.1); Total Protein 5.6 g/dL (6.4-8.2)
[2022-04-26] MEDS: Ensure HIGH Protein Chocolate 8oz Bottle PO SCH ×3 (08:00→19:00)
[2022-04-26] MEDS: MEROPENEM 1GM IVPB 100 ML IV SCH ×3 (08:16→15:59)
[2022-04-26] MEDS: LINEZOLID 600MG/300ML 300 ML IV SCH ×2 (09:57→21:25)
[2022-04-26] MEDS: ENOXAPARIN SOD 80 MG/0.8ML SYRINGE SC SCH (09:58)
[2022-04-26] MEDS: FLUCONAZOLE 100 MG TAB PO SCH (09:58)
[2022-04-26] MEDS: METOPROLOL TARTRATE 25 MG TAB PO SCH ×2 (09:58→21:25)
[2022-04-26] MEDS: POTASSIUM CHL 20 Meq TABLET PO SCH (09:59)
[2022-04-26] MEDS: PANTOPRAZOLE 40 MG TAB PO SCH (09:59)
[2022-04-26] MEDS: AMIODARONE HCL 200 MG TAB PO SCH ×2 (10:00→21:26)
[2022-04-26] MEDS: SPIRONOLACTONE 25 MG TAB PO SCH (10:00)
[2022-04-26] MEDS: FLORASTOR (S. BOULARDII) 250 MG CAP PO SCH (10:00)
[2022-04-26] MEDS: POTASSIUM CHL 10 Meq TABLET PO SCH ×2 (10:15→21:26)
[2022-04-26] MEDS: MORPHINE SULFATE 4 MG/ML SYR/VIAL IV PRN (19:06)
[2022-04-26] MEDS: APIXABAN 5 MG TAB PO SCH (21:26)
[2022-04-27] VITALS (12 sets, daily range): BP systolic 109–138; BP diastolic 47–60
[2022-04-27] MEDS: LEVALBUTEROL HCL 1.25 MG/3 ML NEB NEB SCH ×4 (00:38→18:38)
[2022-04-27] MEDS: IPRATROPIUM BROM 0.5 MG/2.5ML INH SOL NEB SCH ×4 (00:38→18:38)
[2022-04-27] MEDS: FUROSEMIDE 20 MG/2 ML VIAL IV SCH ×2 (06:26→16:58)
[2022-04-27] MEDS: MEROPENEM 1GM IVPB 100 ML IV SCH ×3 (08:27→16:54)
[2022-04-27] MEDS: Ensure HIGH Protein Chocolate 8oz Bottle PO SCH ×3 (08:28→18:00)
[2022-04-27] MEDS: AMIODARONE HCL 200 MG TAB PO SCH ×2 (10:35→22:29)
[2022-04-27] MEDS: APIXABAN 5 MG TAB PO SCH ×2 (10:35→22:29)
[2022-04-27] MEDS: LINEZOLID 600MG/300ML 300 ML IV SCH (10:35)
[2022-04-27] MEDS: FLUCONAZOLE 100 MG TAB PO SCH (10:35)
[2022-04-27] MEDS: POTASSIUM CHL 10 Meq TABLET PO SCH ×2 (10:36→22:28)
[2022-04-27] MEDS: METOPROLOL TARTRATE 25 MG TAB PO SCH ×2 (10:36→22:28)
[2022-04-27] MEDS: PANTOPRAZOLE 40 MG TAB PO SCH (10:36)
[2022-04-27] MEDS: SPIRONOLACTONE 25 MG TAB PO SCH (10:36)
[2022-04-27] MEDS: FLORASTOR (S. BOULARDII) 250 MG CAP PO SCH (10:37)
[2022-04-27] MEDS ORDERED: FUROSEMIDE 20 MG/2 ML VIAL IV ONE (11:15)
[2022-04-27] MEDS: LINEZOLID 600MG TABLET PO SCH (22:28)
[2022-04-28] MEDS: MEROPENEM 1GM IVPB 100 ML IV SCH ×2 (01:44→09:39)
[2022-04-28 03:50] VITALS: BP 117/58
[2022-04-28] MEDS: LEVALBUTEROL HCL 1.25 MG/3 ML NEB NEB SCH ×4 (06:04→19:05)
[2022-04-28] MEDS: IPRATROPIUM BROM 0.5 MG/2.5ML INH SOL NEB SCH ×4 (06:04→19:05)
[2022-04-28] MEDS: FUROSEMIDE 20 MG/2 ML VIAL IV SCH ×2 (06:21→17:15)
[2022-04-28 08:22] LABS: BUN/Creatinine Ratio 8.4; Calcium 9.3 mg/dL (8.5-10.1); Potassium 4.1 mmol/L (3.5-5.1)
[2022-04-28 08:50] VITALS: BP 125/66
[2022-04-28] MEDS: PANTOPRAZOLE 40 MG TAB PO SCH (09:07)
[2022-04-28] MEDS: AMIODARONE HCL 200 MG TAB PO SCH ×2 (09:07→22:30)
[2022-04-28] MEDS: APIXABAN 5 MG TAB PO SCH ×2 (09:07→22:30)
[2022-04-28] MEDS: FLORASTOR (S. BOULARDII) 250 MG CAP PO SCH (09:07)
[2022-04-28] MEDS: LINEZOLID 600MG TABLET PO SCH ×2 (09:08→22:30)
[2022-04-28] MEDS: SPIRONOLACTONE 25 MG TAB PO SCH (09:08)
[2022-04-28] MEDS: METOPROLOL TARTRATE 25 MG TAB PO SCH ×2 (09:08→22:30)
[2022-04-28] MEDS: FLUCONAZOLE 100 MG TAB PO SCH (09:08)
[2022-04-28] MEDS: POTASSIUM CHL 10 Meq TABLET PO SCH ×2 (09:09→22:29)
[2022-04-28] MEDS: Ensure HIGH Protein Chocolate 8oz Bottle PO SCH ×3 (09:09→17:21)
[2022-04-28 13:00] VITALS: BP 127/47
[2022-04-28 16:44] VITALS: BP 133/73
[2022-04-28] MEDS ORDERED: ALBUTEROL MEDNEB 2.5 mg/3ml NEB ONE (18:18)
[2022-04-28 22:00] VITALS: BP 125/55
[2022-04-29] MEDS: LEVALBUTEROL HCL 1.25 MG/3 ML NEB NEB SCH ×3 (00:27→13:34)
[2022-04-29] MEDS: IPRATROPIUM BROM 0.5 MG/2.5ML INH SOL NEB SCH ×3 (00:27→13:34)
[2022-04-29 05:00] VITALS: BP 118/55
[2022-04-29] MEDS: FUROSEMIDE 20 MG/2 ML VIAL IV SCH (06:19)
[2022-04-29] MEDS: Ensure HIGH Protein Chocolate 8oz Bottle PO SCH ×3 (08:00→18:00)
[2022-04-29 09:00] VITALS: BP 121/64
[2022-04-29] MEDS ORDERED: cefTRIAXone 1GM/50ML D5W 50 ML IV SCH (09:00)
[2022-04-29] MEDS: LINEZOLID 600MG TABLET PO SCH (09:18)
[2022-04-29] MEDS: METOPROLOL TARTRATE 25 MG TAB PO SCH ×2 (09:18→22:00)
[2022-04-29] MEDS: FLUCONAZOLE 100 MG TAB PO SCH (09:19)
[2022-04-29] MEDS: PANTOPRAZOLE 40 MG TAB PO SCH (09:19)
[2022-04-29] MEDS: FLORASTOR (S. BOULARDII) 250 MG CAP PO SCH (09:19)
[2022-04-29] MEDS: POTASSIUM CHL 10 Meq TABLET PO SCH ×2 (09:20→22:00)
[2022-04-29] MEDS: APIXABAN 5 MG TAB PO SCH ×2 (09:20→22:00)
[2022-04-29] MEDS: SPIRONOLACTONE 25 MG TAB PO SCH (09:20)
[2022-04-29] MEDS: AMIODARONE HCL 200 MG TAB PO SCH ×2 (09:20→22:00)
[2022-04-29 13:00] VITALS: BP 124/56
[2022-04-29] MEDS ORDERED: LEVALBUTEROL HCL 1.25 MG/3 ML NEB NEB PRN (16:00)
[2022-04-29] MEDS ORDERED: IPRATROPIUM BROM 0.5 MG/2.5ML INH SOL NEB PRN (16:00)
[2022-04-29 16:47] VITALS: BP 120/59
[2022-04-29] MEDS: ALPRAZolam 0.5 MG TAB PO PRN (20:30)
[2022-04-29 21:23] VITALS: BP 131/65
[2022-04-29] MEDS: MORPHINE SULFATE 4 MG/ML SYR/VIAL IV PRN (21:23)
== END 2022-04-29 21:35 | disposition short-term general hospital (02) | DRG 871 ==
LOC: ER 06:15 → EDBD 06:15 → TELE 13:03 → DOU IN ICU 04-17 09:03 → ICU CENTRL 04-17 11:30 → DOU IN ICU 04-26 04:58 → ICU CENTRL 04-27 02:13 → DOU IN ICU 04-27 02:18 → TELE-WESTW 04-27 18:06
PROVIDERS: ADMIT Nurse Practitioner Family; ATTEND Student in an Organized Health Care Education/Training Program
PROC: 05HD33Z Insertion of Infusion Device into Right Cephalic Vein, Percutaneous Approach (ICD-10-PCS; 2022-04-15)
PROC: B54MZZA Ultrasonography of Right Upper Extremity Veins, Guidance (ICD-10-PCS; 2022-04-15)
PROC: 5A0945A Assistance with Respiratory Ventilation, 24-96 Consecutive Hours, High Flow/Velocity Cannula (ICD-10-PCS; principal; 2022-04-19)
PROC: 5A0935A Assistance with Respiratory Ventilation, Less than 24 Consecutive Hours, High Flow/Velocity Cannula (ICD-10-PCS; 2022-04-21)
PROC: 05HF33Z Insertion of Infusion Device into Left Cephalic Vein, Percutaneous Approach (ICD-10-PCS; 2022-04-21)
PROC: B54NZZA Ultrasonography of Left Upper Extremity Veins, Guidance (ICD-10-PCS; 2022-04-21)
PROC: 5A0935A Assistance with Respiratory Ventilation, Less than 24 Consecutive Hours, High Flow/Velocity Cannula (ICD-10-PCS; 2022-04-22)
PROC: 5A0935A Assistance with Respiratory Ventilation, Less than 24 Consecutive Hours, High Flow/Velocity Cannula (ICD-10-PCS; 2022-04-23)
PROC: 5A0935A Assistance with Respiratory Ventilation, Less than 24 Consecutive Hours, High Flow/Velocity Cannula (ICD-10-PCS; 2022-04-24)
PROC: 5A0935A Assistance with Respiratory Ventilation, Less than 24 Consecutive Hours, High Flow/Velocity Cannula (ICD-10-PCS; 2022-04-25)
PROC: 5A0935A Assistance with Respiratory Ventilation, Less than 24 Consecutive Hours, High Flow/Velocity Cannula (ICD-10-PCS; 2022-04-26)
DX: A41.9 Sepsis, unspecified organism (principal); I21.A1 Myocardial infarction type 2; J96.01 Acute respiratory failure with hypoxia; N17.0 Acute kidney failure with tubular necrosis; R65.21 Severe sepsis with septic shock; I50.31 Acute diastolic (congestive) heart failure; J18.9 Pneumonia, unspecified organism; I47.1 Supraventricular tachycardia; I48.92 Unspecified atrial flutter; N39.0 Urinary tract infection, site not specified; I69.351 Hemiplegia and hemiparesis following cerebral infarction affecting right dominant side; D68.69 Other thrombophilia; I82.A11 Acute embolism and thrombosis of right axillary vein; Z68.41 Body mass index [BMI] 40.0-44.9, adult; Z20.822 Contact with and (suspected) exposure to COVID-19; F41.9 Anxiety disorder, unspecified; I48.0 Paroxysmal atrial fibrillation; I49.3 Ventricular premature depolarization; D35.02 Benign neoplasm of left adrenal gland; E87.6 Hypokalemia; D64.9 Anemia, unspecified; I11.0 Hypertensive heart disease with heart failure; E66.01 Morbid (severe) obesity due to excess calories; E78.5 Hyperlipidemia, unspecified; K76.0 Fatty (change of) liver, not elsewhere classified; M06.9 Rheumatoid arthritis, unspecified; Z79.01 Long term (current) use of anticoagulants; Z80.0 Family history of malignant neoplasm of digestive organs; Z79.899 Other long term (current) drug therapy; Z87.442 Personal history of urinary calculi; Z80.3 Family history of malignant neoplasm of breast; Z87.891 Personal history of nicotine dependence
CPT/HCPCS: 36415; 36600; 71045; 71275; 74176; 76775; 80048; 80053; 80162; 81001; 81241; 82570; 82805; 83036; 83605; 83735; 83880; 84100; 84156; 84300; 84443; 84484; 85007; 85025; 85027; 85379; 85610; 85613; 85670; 85705; 85730; 85732; 86800; 86803; 87040; 87070; 87077; 87081; 87086; 87088; 87186; 87205; 87340; 87426; 87804; 93005; 93306; 93970; 93971; 94640; 96365; 96375; 96376; 99291; C9113; G0378; J0153; J0696; J1885; J2185; J2405; J3470; J3480; J3490; J7042; J7060; P9047

== ENCOUNTER 2024-06-28 11:45 | Emergency (ER) | payer OTHER ==
[~2024-06-28] VITALS: Ht 160 cm; Wt 82.0 kg
[~2024-06-28 11:45] MED LIST changes: +AMLO1TAB22 PO; +ATOR-47 PO; -CIPR-173 PO; +HYDR25TA87 PO; -ONDA-144 PO; -PERCOT PO; +POTA-36 PO; -PRED20TA2 PO; -TAM04C PO; +TAMS-35 PO
[2024-06-28 13:41] VITALS: BP 133/77; PULSE 67; RESP 18; TEMP 98.7; O2SAT 95
--- NOTE | 2024-06-28 13:59 | ED.PDOC ---
History of Present Illness HPI Comments A 59 YEAR OLD FEMALE PRESENTS TO THE ED WITH COMPLAINT OF LEFT SHOULDER PAIN, BILATERAL HAND PAIN, AND BILATERAL KNEE PAIN DUE TO RA. PATIENT STATES SHE HAS A HISTORY OF RHEUMATOID ARTHRITIS AND HAS BEEN EXPERIENCING LEFT SHOULDER PAIN, BILATERAL HAND PAIN, AND BILATERAL KNEE PAIN FOR THE PAST 1 MONTH DUE TO NOT HAVING ANY PAIN MEDICATION AT THIS TIME. PATIENT IS REQUESTING PAIN MANAGEMENT HERE IN THE ED. PATIENT DENIES FEVER, CHILLS, SHORTNESS OF BREATH, CHEST PAIN, ABDOMINAL PAIN, NAUSEA, VOMITING, HEADACHE, OR OTHER COMPLAINTS. NO OTHER SYMPTOMS OR MODIFYING FACTORS AT THIS TIME. PATIENT IS ALERT, ORIENTED X 4, AND HAS STEADY GAIT. Chief Complaint: Body Pain Time Seen by MD: 12:38 Primary Care Provider: FRANCO Reviewed Notes: Nurses Notes, Medications, Allergies Allergies: Coded Allergies: NO KNOWN ALLERGIES (Unverified , 09/10/21) Home Meds Active Scripts Tamsulosin Hcl (Flomax) 0.4 Mg Cap, 1 CAP PO DAILY, #30 CAP 11 Refills Prov:ASHA POSADA MD 09/11/21 Reported Medications Hydralazine HCl (Hydralazine HCl) 25 Mg Tab, 50 MG PO TID, TAB 04/17/22 Potassium Chloride (POTASSIUM CHLORIDE CR) 10 Meq Tb, 2 TAB PO TID, #30 TAB 5 Refills 04/17/22 Amlodipine Besylate (Amlodipine Besylate) 5 Mg Tab, 10 MG PO DAILY for HTN for 30 Days, MG 04/17/22 Atorvastatin Calcium (ATORVASTATIN CALCIUM) 80 Mg Tab, 1 TAB PO DAILY 04/15/22 Information Source: Patient Mode of Arrival: Ambulatory Severity: Moderate Timing: Weeks Duration: Since onset, Days Prehospital treatment: None Medication Refill: For: Other (CHRONIC LEFT SHOULDER PAIN, BILATERAL HAND PAIN, BILATERAL KNEE PAIN AND PAIN MANAGEMENT) Past Medical History PAST MEDICAL HISTORY: Arthritis, CVA, High Lipids, HTN, Kidney Stones Past Medical History (Other): RA Surgical History: Denies all surgeries CIRCUIT CLERK History: Denies all CIRCUIT CLERK Hx Family History Family History: Reviewed,noncontributory to illness Social History Smoker: Non-Smoker Alcohol: Denies ETOH Use Drugs: Denies Drug Use Lives In: Home Constitutional: denies: chills, diaphoresis, fatigue, fever, malaise, sweats, weakness, others EENTM: denies: blurred vision, double vision, ear bleeding, ear discharge, ear drainage, ear pain, ear ringing, eye pain, eye redness, hearing loss, mouth pain, mouth swelling, nasal discharge, nose bleeding, nose congestion, nose pain, photophobia, tearing, throat pain, throat swelling, voice changes, others Respiratory: denies: cough, hemoptysis, orthopnea, SOB at rest, shortness of breath, SOB with excertion, stridor, wheezing, others Cardiovascular: denies: chest pain, dizzy spells, diaphoresis, Dyspnea on exertion, edema, irregular heart beat, left arm pain, lightheadedness, palpitations, PND, syncope, others Gastrointestinal: denies: abdomen distended, abdominal pain, blood streaked bowels, constipated, diarrhea, dysphagia, difficulty swallowing, hematemesis, melena, nausea, poor appetite, poor fluid intake, rectal bleeding, rectal pain, vomiting, others Genitourinary: denies: abnormal vagina bleeding, burning, dyspareunia, dysuria, flank pain, frequency, hematuria, incontinence, pain, , vagina discharge, urgency, others Neurological: denies: dizziness, fainting, headache, left sided numbness, left sided weakness, numbness, paresthesia, pre-existing deficit, right sided numbness, right sided weakness, seizure, speech problems, tingling, tremors, weakness, others Musculoskeletal: reports: joint pain, joint swelling, others (LEFT SHOULDER PAIN, BILATERAL HAND PAIN, AND BILATERAL KNEE PAIN); denies: back pain, gout, muscle pain, muscle stiffness, neck pain Integumetry: denies: bruises, change in color, change in hair/nails, dryness, laceration, lesions, lumps, rash, wounds, others Allergic/Immunocompromised: denies: Difficulty Healing, Frequent Infections, Hives, Itching, others Hematologic/Lymphatic: denies: anemia, blood clots, easy bleeding, easy bruising, swollen glands, others Endocrine: denies: excessive hunger, excessive sweating, excessive thirst, excessive urination, flushing, intolerance to cold, intolerance to heat, unexplained weight gain, unexplained weight loss, others Psychiatric: denies: anxiety, bipolar disorder, depression, hopeless, panic disorder, schizophrenia, sleepless, suicidal, others All Other Systems: Reviewed and Negative Physical Exam General Appearance: No Apparent Distress, Normal HEENT: Normal ENT Inspection, PERRL/EOMI, Pharynx Normal, TMs Normal Neck: Full Range of Motion, Non-Tender, Normal, Normal Inspection Respiratory: Chest Non-Tender, Lungs Clear, No Accessory Muscle Use, No Respiratory Distress, Normal Breath Sounds Cardiovascular: No Edema, No JVD, No Murmur, No Gallop, Normal Peripheral Pulses, Regular Rate/Rhythm Breast Exam: Deferred Gastrointestinal: No Organomegaly, Non Tender, No Pulsatile Mass, Normal Bowel Sounds, Soft Genitalia: Deferred Pelvic: Deferred Rectal: Deferred Extremities: No calf tenderness, Normal capillary refill, Normal range of motion, No pedal edema, Swelling (TENDERNESS AND MILD SWELLING NOTES TO BILATERAL HANDS WITH MILD DEFORMITY NOTED DUE TO RA.), Tender (TENDERNESS ON LEFT SHOULDER AND BILATERAL KNEE, NO BONY TENDERNESS, SWELLING AND DEFORMITY. ) Musculoskeletal : Apperance: Normal Neurologic: Alert, civil service worker II-XII nml as Tested, No Motor Deficits, Normal Affect, Normal Mood, No Sensory Deficits Cerebellar Function: Normal Reflexes: Normal Skin: Dry, Normal Color, Warm Peripheral Pulses: 2+ carotid (R), 2+ carotid (L), 2+ dorsalis pedis (R), 2+ dorsalis pedis (L), 2+ Radial (R), 2+ Radial (L) Lymphatic: No Adenopathy Was a procedure done? Was a procedure done?: No Differential Dx Considerations may include: HISTORY OF RHEUMATOID ARTHRITIS, PAIN MANAGEMENT X-Ray, Labs, Meds, VS Vital Signs Date Time Temp Pulse Resp B/P (MAP) Pulse Ox O2 Delivery O2 Flow Rate FiO2 06/28/24 13:41 67 18 95 Room Air 06/28/24 13:41 98.7 67 18 133/77 (95) 95 98.7 06/28/24 11:46 98.7 67 18 133/77 (95) 95 98.7 Current Medications Medications (Trade) Dose Ordered Sig/Karon Route Start Time Stop Time Status Last Admin Ketorolac Tromethamine (Toradol Injection) 60 mg ONCE ONCE IM 06/28/24 14:00 06/28/24 14:01 DC 06/28/24 14:00 Methylprednisolone Sodium Succinate (Solu Medrol) 125 mg ONCE ONCE IM 06/28/24 14:00 06/28/24 14:01 DC 06/28/24 14:00 X-Ray, Labs, Meds, VS Comment EXTERNAL MEDICAL RECORDS REVIEWED: [NONE] INDEPENDENT HISTORIANS: [NONE] SOCIAL DETERMINANTS OF HEALTH: [NONE] LABS ORDERED: NONE REVIEWED AND INTERPRETED RESULTS: NONE IMAGING ORDERED: NONE TREATMENTS ORDERED: TORADOL 60 MG IM, SOLU-MEDROL 125 MG IM PROCEDURES PERFORMED: NONE CRITICAL CARE TIME: NONE I HAVE DISCUSSED THE PATIENT WITH THE ATTENDING PHYSICIAN DR. WHITE AND HE AGREES WITH THE PATIENT'S PLAN OF CARE AND DISPOSITION. BASED ON HISTORY OF PRESENT ILLNESS, AND PHYSICAL EXAM, PATIENT WILL BE DISCHARGED HOME. SHARED DECISION MAKING: PATIENT INSTRUCTED TO FOLLOW UP WITH PRIMARY CARE PROVID ER IN 1-2 DAYS FOR RE-EVALUATION OF SYMPTOMS. PATIENT VERBALIZES UNDERSTANDING TO RETURN TO ED FOR NEW OR WORSENING SYMPTOMS OR IF FOLLOW UP WITH PCP CANNOT BE OBTAINED. PATIENT FEELS COMFORTABLE GOING HOME AT THIS TIME. ALL QUESTIONS ADDRESSED AT TIME OF DISCHARGE. Time of 1ST Reevaluation: 14:32 Reevaluation 1ST: Improved Patient Education/Counseling: Diagnosis, Treatment, Need For Follow Up Family Education/Counseling: Diagnosis, Treatment, Need For Follow Up Medical Screening: No EMC Exist At This Time Departure 1 Departure Time of Disposition: 14:32 Impression: Primary Impression: Rheumatoid arthritis flare Additional Impression: Pain management Disposition: 01 HOME / SELF CARE / HOMELESS Condition: Stable Additional Instructions: FOLLOW-UP WITH PCP IN 1 TO 2 DAYS. TAKE MEDICATIONS PRESCRIBED. RETURN TO ED FOR ANY NEW OR WORSENING SYMPTOMS. e-Prescriptions Tramadol HCl (Tramadol HCl) 50 Mg Tab 50 MG PO BID, #20 TAB Prov: PITA ESPOSITO 06/28/24 Prednisone (Prednisone) 20 Mg Tab 20 MG PO BID, #20 TAB Prov: PITA ESPOSITO 06/28/24 Discharged With: Self, Relative Critical Care Note Critical Care Time?: No Stability Stability form required: No I personally scribed for PITA ESPOSITO ([email or web address]) on 06/28/24 at 13:59. Electronically submitted by Bernardino Alonzo ([email or web address]). I personally scribed for PITA ESPOSITO ([email or web address]) on 06/28/24 at 14:11. Electronically submitted by Bernardino Alonzo ([email or web address]). PITA ESPOSITO Jun 28, 2024 13:59
[2024-06-28] MEDS: KETOROLAC TROMETH 60MG/2ML VIAL IM ONE (14:00)
[2024-06-28] MEDS: methylPREDNISolone SOD SUCC 125 MG/2 ML VL IM ONE (14:00)
[2024-06-28] MEDS ORDERED: PRED20TA2 PO (14:34)
[2024-06-28] MEDS ORDERED: TRAM-626 PO (14:34)
== END 2024-06-28 14:47 | disposition home or self-care (01) ==
LOC: ER 11:57
DX: M06.9 Rheumatoid arthritis, unspecified (principal); I10 Essential (primary) hypertension; E78.5 Hyperlipidemia, unspecified; M19.90 Unspecified osteoarthritis, unspecified site; Z86.73 Personal history of transient ischemic attack (TIA), and cerebral infarction without residual deficits; Z79.899 Other long term (current) drug therapy
CPT/HCPCS: 96372; 99284; J1885; J2919

== ENCOUNTER 2024-09-28 12:37 | Emergency (ER) | payer MEDICAID, OTHER ==
[~2024-09-28] VITALS: Ht 160 cm; Wt 90.0 kg
[~2024-09-28 12:37] MED LIST changes: +PRED20TA2 PO; +TRAM-626 PO
--- NOTE | 2024-09-28 13:25 | ED.PDOC ---
History of Present Illness HPI Comments 59F presents to the ER in a wheelchair and w/ and w/ prior MHx of RA, Pneumonia, CVA w/ right sided weakness, Arthritis, Kidney Stones, HTN, High Lipids;SHx of and the c/c of Knee pains. Pt reports on having bilateral knee pain which is warm to the touch/swollen for the past 3 weeks. Denies chills, fever, N/V/D, SOB, CP. No other associated symptoms, modifiers, recent injuries or sick contacts present at this time. Chief Complaint: Lower Extremity Time Seen by MD: 13:15 Primary Care Provider: FRANCO Reviewed Notes: Nurses Notes, Medications, Allergies Allergies: Coded Allergies: NO KNOWN ALLERGIES (Unverified , 09/10/21) Home Meds Active Scripts Tramadol HCl (Tramadol HCl) 50 Mg Tab, 50 MG PO BID, #20 TAB Prov:PITA ESPOSITO 06/28/24 Prednisone (Prednisone) 20 Mg Tab, 20 MG PO BID, #20 TAB Prov:PITA ESPOSITO 06/28/24 Tamsulosin Hcl (Flomax) 0.4 Mg Cap, 1 CAP PO DAILY, #30 CAP 11 Refills Prov:ASHA POSADA MD 09/11/21 Reported Medications Hydralazine HCl (Hydralazine HCl) 25 Mg Tab, 50 MG PO TID, TAB 04/17/22 Potassium Chloride (POTASSIUM CHLORIDE CR) 10 Meq Tb, 2 TAB PO TID, #30 TAB 5 Refills 04/17/22 Amlodipine Besylate (Amlodipine Besylate) 5 Mg Tab, 10 MG PO DAILY for HTN for 30 Days, MG 04/17/22 Atorvastatin Calcium (ATORVASTATIN CALCIUM) 80 Mg Tab, 1 TAB PO DAILY 04/15/22 Information Source: Patient Mode of Arrival: Ambulatory Severity: Moderate Timing: Weeks Duration: Since onset Prehospital treatment: None Past Medical History PAST MEDICAL HISTORY: Arthritis, CVA (Right Sided Weakness), High Lipids, HTN, Kidney Stones Past Medical History (Other): RA, Pneumonia Surgical History: KNITTING DEMONSTRATOR History: Denies all KNITTING DEMONSTRATOR Hx Family History Family History: Reviewed,noncontributory to illness, Unknown Social History Smoker: Non-Smoker Alcohol: Denies ETOH Use Drugs: Denies Drug Use Lives In: Home Constitutional: denies: chills, diaphoresis, fatigue, fever, malaise, sweats, weakness, others EENTM: denies: blurred vision, double vision, ear bleeding, ear discharge, ear drainage, ear pain, ear ringing, eye pain, eye redness, hearing loss, mouth pain, mouth swelling, nasal discharge, nose bleeding, nose congestion, nose pain, photophobia, tearing, throat pain, throat swelling, voice changes, others Respiratory: denies: cough, hemoptysis, orthopnea, SOB at rest, shortness of breath, SOB with excertion, stridor, wheezing, others Cardiovascular: denies: chest pain, dizzy spells, diaphoresis, Dyspnea on exertion, edema, irregular heart beat, left arm pain, lightheadedness, pal pitations, PND, syncope, others Gastrointestinal: denies: abdomen distended, abdominal pain, blood streaked bowels, constipated, diarrhea, dysphagia, difficulty swallowing, hematemesis, melena, nausea, poor appetite, poor fluid intake, rectal bleeding, rectal pain, vomiting, others Genitourinary: denies: abnormal vagina bleeding, burning, dyspareunia, dysuria, flank pain, frequency, hematuria, incontinence, pain, , vagina discharge, urgency, others Neurological: denies: dizziness, fainting, headache, left sided numbness, left sided weakness, numbness, paresthesia, pre-existing deficit, right sided numbness, right sided weakness, seizure, speech problems, tingling, tremors, weakness, others Musculoskeletal: reports: others (Knee Pain); denies: back pain, gout, joint pain, joint swelling, muscle pain, muscle stiffness, neck pain Integumetry: denies: bruises, change in color, change in hair/nails, dryness, laceration, lesions, lumps, rash, wounds, others Allergic/Immunocompromised: denies: Difficulty Healing, Frequent Infections, Hives, Itching, others Hematologic/Lymphatic: denies: anemia, blood clots, easy bleeding, easy bruising, swollen glands, others Endocrine: denies: excessive hunger, excessive sweating, excessive thirst, excessive urination, flushing, intolerance to cold, intolerance to heat, unexplained weight gain, unexplained weight loss, others Psychiatric: denies: anxiety, bipolar disorder, depression, hopeless, panic disorder, schizophrenia, sleepless, suicidal, others All Other Systems: Reviewed and Negative Physical Exam General Appearance: No Apparent Distress, Normal HEENT: Normal ENT Inspection, Pharynx Normal, TMs Normal Neck: Full Range of Motion, Non-Tender, Normal, Normal Inspection Respiratory: Chest Non-Tender, Lungs Clear, No Accessory Muscle Use, No Respiratory Distress, Normal Breath Sounds Cardiovascular: No Edema, No JVD, No Murmur, No Gallop, Normal Peripheral Pulses, Regular Rate/Rhythm Breast Exam: Deferred Gastrointestinal: No Organomegaly, Non Tender, No Pulsatile Mass, Normal Bowel Sounds, Soft Genitalia: Deferred Pelvic: Deferred Rectal: Deferred Extremities: No calf tenderness, Normal capillary refill, Normal inspection, Normal range of motion, Non-tender, No pedal edema Musculoskeletal : Apperance: Normal Neurologic: Alert, pen and pencil repairer II-XII nml as Tested, No Motor Deficits, Normal Affect, Normal Mood, No Sensory Deficits Cerebellar Function: Normal Reflexes: Normal Skin: Dry, Normal Color, Warm Lymphatic: No Adenopathy Was a procedure done? Was a procedure done?: No Differential Dx Considerations may include: arthritis, sprain, strain, contusion, septic joint X-Ray, Labs, Meds, VS Vital Signs Date Time Temp Pulse Resp B/P (MAP) Pulse Ox O2 Delivery O2 Flow Rate FiO2 09/28/24 13:23 99.4 83 17 123/64 (83) 95 99.4 Current Medications Medications (Trade) Dose Ordered Sig/Karon Route Start Time Stop Time Status Last Admin Tramadol HCl (Ultram) 50 mg ONCE ONCE PO 09/28/24 13:15 09/28/24 13:16 DC 09/28/24 13:32 Prednisone 20 mg ONCE ONCE PO 09/28/24 13:15 09/28/24 13:16 DC 09/28/24 13:32 Time of 1ST Reevaluation: 13:45 Reevaluation 1ST: Unchanged Time of 2ND Reevaluation: 14:37 Reevaluation 2ND: Improved Patient Education/Counseling: Diagnosis, Treatment, Prognosis, Need For Follow Up Family Education/Counseling: Diagnosis, Treatment, Prognosis, Need For Follow Up Departure 1 Departure Time of Disposition: 14:37 Impression: Primary Impression: Rheumatoid arthritis flare Disposition: HOME / SELF CARE / HOMELESS Condition: Good e-Prescriptions Prednisone (Prednisone) 20 Mg Tab 20 MG PO DAILY for 5 Days, #5 TAB Prov: ANDI FISHER MD 09/28/24 Etodolac (Etodolac) 400 Mg Tab 1 TAB PO BID, #60 TAB 1 Refill Prov: ANDI FISHER MD 09/28/24 Discharged With: Self, Relative Critical Care Note Critical Care Time?: No Stability Stability form required: No I personally scribed for ANDI FISHER MD ([email or web address]) on 09/28/24 at 13:25. Electronically submitted by Sergo Thacker ([email or web address]). ANDI FISHER MD Sep 28, 2024 13:25
[2024-09-28] MEDS: traMADol HCL 50 MG TAB PO ONE (13:32)
[2024-09-28] MEDS: predniSONE 20 MG TAB PO ONE (13:32)
[2024-09-28] MEDS ORDERED: PRED20TA2 PO (14:39)
[2024-09-28] MEDS ORDERED: ETOD-182 PO (14:39)
[2024-09-28 15:03] VITALS: BP 126/83; PULSE 77; RESP 17; TEMP 97.9; O2SAT 96
== END 2024-09-28 15:05 | disposition home or self-care (01) ==
LOC: ER 12:37
DX: M06.9 Rheumatoid arthritis, unspecified (principal); I10 Essential (primary) hypertension; E78.5 Hyperlipidemia, unspecified; Z79.52 Long term (current) use of systemic steroids; Z87.442 Personal history of urinary calculi; Z79.899 Other long term (current) drug therapy; Z98.890 Other specified postprocedural states; Z86.73 Personal history of transient ischemic attack (TIA), and cerebral infarction without residual deficits
CPT/HCPCS: 99283; J7512